=== PATIENT | male | born 1970 | race American Indian/Alaskan Native ===

== ENCOUNTER 2020-12-18 09:25 | Emergency (ER) | payer SELFPAY ==
[2020-12-18 09:34] VITALS: BP 126/61
[2020-12-18] MEDS ORDERED: dexAMETHasone 4 MG/ML VIAL IM ONE (10:20)
[2020-12-18] MEDS ORDERED: KETOROLAC 10 MG TAB PO ONE (10:20)
--- NOTE | 2020-12-18 10:44 | Emergency Department Report ---
ED Back Pain/Injury HPI - General Chief Complaint: Back Pain/Injury Stated Complaint: BACK PAINS LOWER Time Seen by Provider: 12/18/20 10:15 Source: patient Limitations: No Limitations - History of Present Illness Initial Comments: Patient is a 50-year-old male presents emergency room complaints of right lower back pain that radiates down his right leg and into his right gluteus that began 3 days ago. 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 He denies any fall or injury. He denies ever having this in the past. He denies any history of sciatica previously. He denies any fever, nausea, vomiting, diarrhea, numbness, weakness, bowel or bladder incontinence, urinary symptoms, urinary retention. Past medical history of asthma but states he has not had a exacerbation in several years. No allergies to medications. Patient denies any past medical history of diabetes. - Related Data Previous Rx's Medication Instructions Recorded Last Taken Type Menthol/Camphor [[place] 1 applicatio TP BID #18 oint...g. 12/18/20 Unknown Rx Ointment] Naproxen [EC-Naprosyn] 375 mg PO BID PRN #20 tablet. 12/18/20 Unknown Rx Prednisone [predniSONE 10 mg 10 mg PO .TAPER #1 tab.ds.pk 12/18/20 Unknown Rx (6-Day Pack, 21 Tabs)] methOCARBAMOL [Robaxin TAB] 500 mg PO BID PRN #20 tab 12/18/20 Unknown Rx Allergies Allergy/AdvReac Type Severity Reaction Status Date / Time No Known Allergies Allergy Unverified 12/18/20 09:31 ED Review of Systems ROS: Stated complaint: BACK PAINS LOWER Other details as noted in HPI Comment: All other systems reviewed and negative ED Past Medical Hx - Past Medical History Previous Medical History?: Yes Hx Asthma: Yes - Surgical History Past Surgical History?: No - Social History Smoking Status: Current Every Day Smoker - Medications Home Medications: Home Medications Medication Instructions Recorded Confirmed Last Taken Type Menthol/Camphor [[place] 1 applicatio TP BID #18 oint...g. 12/18/20 Unknown Rx Ointment] Naproxen [EC-Naprosyn] 375 mg PO BID PRN #20 tablet. 12/18/20 Unknown Rx Prednisone [predniSONE 10 mg 10 mg PO .TAPER #1 tab.ds.pk 12/18/20 Unknown Rx (6-Day Pack, 21 Tabs)] methOCARBAMOL [Robaxin TAB] 500 mg PO BID PRN #20 tab 12/18/20 Unknown Rx ED Physical Exam - General Limitations: No Limitations General appearance: alert, in no apparent distress - Head Head exam: Present: atraumatic, normocephalic - Eye Eye exam: Present: normal appearance - ENT ENT exam: Present: mucous membranes moist - Neck Neck exam: Present: normal inspection, full ROM. Absent: tenderness, meningismus - Respiratory Respiratory exam: Present: normal lung sounds bilaterally. Absent: respiratory distress, wheezes, rales, rhonchi, stridor, chest wall tenderness, accessory muscle use, decreased breath sounds, prolonged expiratory - Cardiovascular Cardiovascular Exam: Present: regular rate, normal rhythm, normal heart sounds. Absent: systolic murmur, diastolic murmur, rubs, gallop - Back Exam Back exam: Present: normal inspection, full ROM, paraspinal tenderness (right sided lumbar paraspinal ttp, no midline C-spine, T-spine or L-spine ttp, no step offs, no deformities, pain with SLR of the right leg ). Absent: vertebral tenderness - Neurological Exam Neurological exam: Present: alert, oriented X3, CN II-XII intact, normal gait. Absent: motor sensory deficit - Psychiatric Psychiatric exam: Present: normal affect, normal mood - Skin Skin exam: Present: warm, dry, intact ED Course Vital Signs 12/18/20 12/18/20 09:33 10:54 Temperature 99.1 F 98 F Pulse Rate 77 80 Respiratory 18 18 Rate Blood Pressure 126/61 126/61 [Right] O2 Sat by Pulse 100 100 Oximetry ED Medical Decision Making - Medical Decision Making Patient is a 50-year-old male presents emergency room complaints of right lower back pain that radiates down his right leg and into his right gluteus that began 3 days ago. 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 He denies any fall or injury. He denies ever having this in the past. He denies any history of sciatica previously. He denies any fever, nausea, vomiting, diarrhea, numbness, weakness, bowel or bladder incontinence, urinary symptoms, urinary retention. Past medical history of asthma but states he has not had a exacerbation in several years. No allergies to medications. Patient denies any past medical history of diabetes. Vitals are normal. On exam:right sided lumbar paraspinal ttp, no midline C-spine, T-spine or L-spine ttp, no step offs, no deformities, pain with SLR of the right leg. Examination appears most consistent with sciatica versus lumbar radiculopathy. Patient given medication while in the emergency department with improvement of his symptoms. Patient has no red flag warning signs of back pain, no trauma, no unexplained weight loss, no neuro deficits, age is not greater than 50, no fever, no IV drug use, no steroid use, no history of cancer. He has no clinical signs of conus medullaris or cauda equina. Patient given prescription for medications. Advised patient Please take medication as prescribed. Do not drive or operate machinery while taking muscle relaxer. May use ice pack, heating pad, rest, and epsom salt bath. do not use ointment while using heat or ice. Follow-up with your primary care doctor. Follow-up with orthopedic doctor. Return to emergency room for new or worse symptoms. Critical care attestation.: If time is entered above; I have spent that time in minutes in the direct care of this critically ill patient, excluding procedure time. ED Disposition Clinical Impression: Low back pain Qualifiers: Chronicity: acute Back pain laterality: right Sciatica presence: with sciatica Sciatica laterality: sciatica of right side Qualified Code(s): M54.41 - Lumbago with sciatica, right side Disposition: TO HOME OR SELFCARE Is pt being admited?: No Does the pt Need Aspirin: No Condition: Stable Instructions: Sciatica Additional Instructions: Please take medication as prescribed. Do not drive or operate machinery while taking muscle relaxer. May use ice pack, heating pad, rest, and epsom salt bath. do not use ointment while using heat or ice. Follow-up with your primary care doctor. Follow-up with orthopedic doctor. Return to emergency room for new or worse symptoms. Prescriptions: Naproxen [EC-Naprosyn] 375 mg PO BID PRN #20 tablet.dr SHEPARDN Reason: pain Prednisone [predniSONE 10 mg (6-Day Pack, 21 Tabs)] 10 mg PO .TAPER #1 tab.ds.pk methOCARBAMOL [Robaxin TAB] 500 mg PO BID PRN #20 tab PRN Reason: muscle spasm/pain Menthol/Camphor [[place] Ointment] 1 applicatio TP BID #18 oint...g. Referrals: AUNDREA CRUZ MD [Staff Physician] - 2-3 Days [facility] [place] [Provider Group] - 2-3 Days RAMÓN MARTINEZ MD [Staff Physician] - 2-3 Days [facility] [Provider Group] - 2-3 Days Time of Disposition: 10:45 Print Language: ICELANDIC
== END 2020-12-18 11:29 | disposition home or self-care (01) ==
LOC: ED 09:25
DX: M54.5 Low back pain (principal); J45.909 Unspecified asthma, uncomplicated; F17.200 Nicotine dependence, unspecified, uncomplicated; Z79.899 Other long term (current) drug therapy
CPT/HCPCS: 96372; 99282; J1100